=== PATIENT | male | born 1960 | race Hispanic/Latino ===

== ENCOUNTER 2021-07-20 17:31 | Inpatient (IN) | payer OTHER ==
[~2021-07-20] VITALS: Ht 165.1 cm; Wt 50.0 kg
[2021-07-20] MEDS ORDERED: 0.9%NACL 1000ML 1,000 ML IV ONE (19:00)
[2021-07-20] MEDS ORDERED: CEFTRIAXONE 1G VIAL IVP ONE (19:00)
[2021-07-20 19:07] LABS: BASOPHILS % (AUTO) 0.6 % (0.0-5.0); EOSINOPHILS % (AUTO) 2.1 % (0.0-8.0); HEMATOCRIT 33.3 % (42-54); LYMPHOCYTES % (AUTO) 15.1 % (21.0-51.0); MEAN CORPUSCULAR HEMOGLOBIN 31.2 pg (27.0-33.0); MEAN CORPUSCULAR HGB CONC 34.2 g/dL (32.0-36.0); MEAN CORPUSCULAR VOLUME 91.2 fL (79-99); MONOCYTES % (AUTO) 9.1 % (3.0-13.0); NEUTROPHILS % (AUTO) 72.3 % (40.0-77.0); PLATELET COUNT (AUTO) 393 K/uL (130-400); RED BLOOD CELL COUNT(AUTO) 3.65 MIL/uL (4.50-6.20); RED CELL DISTRIBUTION WIDTH 11.7 % (11.0-15.5)
[2021-07-20 19:12] LABS: APPEARANCE,URINE Turbid (CLEAR); BILIRUBIN,URINE Negative (NEGATIVE); COLOR,URINE Yellow (YELLOW); GLUCOSE, URINE (UA) Negative (NEGATIVE); KETONES,URINE Negative (NEGATIVE); LEUKOCYTE ESTERASE ,URINE Large (NEGATIVE); NITRATE,URINE Negative (NEGATIVE); OCCULT BLOOD,URINE Moderate (NEGATIVE); PROTEIN,URINE POS 2+ mg/dL (NEGATIVE); UROBILINOGEN,URINE 0.2 mg/dL (0.2-1.0)
[2021-07-20 19:24] LABS: WBC,URINE 51-100 /HPF (0-1)
[2021-07-20 19:25] LABS: BACTERIA,URINE Moderate /HPF (None Seen); MUCUS,URINE Few LPF (None Seen); SQUAMOUS EPITHELIAL CELL,UR 0-2 /HPF (0-2)
[2021-07-20 19:27] LABS: ALBUMIN 2.7 g/dL (3.5-5.0); BILIRUBIN,TOTAL 0.6 mg/dL (0.2-1.0); CREATININE 5.4 mg/dL (0.5-1.5); POTASSIUM 4.8 mmol/L (3.5-5.1); TOTAL PROTEIN, SERUM 9.2 g/dL (6.0-8.3)
[2021-07-20 19:42] LABS: CRP QUANTITATIVE 212.8 mg/L (0.00-9.0)
[2021-07-20] MEDS ORDERED: ACETAMINOPHEN 325 MG TAB PO PRN (21:00)
[2021-07-20] MEDS ORDERED: LACTATED RINGERS 1000ML 1,845 ML IV ONE (21:00)
[2021-07-20] MEDS: LACTATED RINGERS 1000ML 1,000 ML IV SCH (22:05)
[2021-07-20] MEDS: CEFTRIAXONE 1G VIAL IV SCH (22:05)
[2021-07-20] MEDS: HEPARIN 5,000 UNIT VIAL SQ SCH (22:05)
[2021-07-20] MEDS ORDERED: DIPHENOXYLATE HCL/ATROPINE 2.5/0.025 MG TAB PO PRN (22:30)
[2021-07-20 22:52] LABS: ABG OXYGEN SATURATION 27.2 % (95.0-99.0); BASE EXCESS,VENOUS BLOOD GAS -7.7 (-2.0-3.0); HCO3,VENOUS BLOOD GAS 19.4 (21.0-28.0); PCO2,VENOUS BLOOD GAS 45 (35-48); PH,VENOUS BLOOD GAS 7.249 (7.350-7.450)
[2021-07-21] VITALS (21 sets, daily range): BP systolic 85–157; BP diastolic 43–84
[2021-07-21 06:36] LABS: BASOPHILS % (AUTO) 0.4 % (0.0-5.0); EOSINOPHILS % (AUTO) 0.9 % (0.0-8.0); HEMATOCRIT 34.6 % (42-54); LYMPHOCYTES % (AUTO) 14.2 % (21.0-51.0); MEAN CORPUSCULAR HEMOGLOBIN 30.6 pg (27.0-33.0); MEAN CORPUSCULAR HGB CONC 33.2 g/dL (32.0-36.0); MONOCYTES % (AUTO) 7.1 % (3.0-13.0); NEUTROPHILS % (AUTO) 77.1 % (40.0-77.0); PLATELET COUNT (AUTO) 415 K/uL (130-400); RED BLOOD CELL COUNT(AUTO) 3.76 MIL/uL (4.50-6.20); RED CELL DISTRIBUTION WIDTH 11.9 % (11.0-15.5); WHITE BLOOD COUNT (AUTO) 10.1 K/uL (4.8-10.8)
[2021-07-21 06:52] LABS: CREATININE 5.3 mg/dL (0.5-1.5); MAGNESIUM 2.4 mg/dL (1.80-2.40); PHOSPHORUS 5.6 mg/dL (2.5-4.9); POTASSIUM 4.9 mmol/L (3.5-5.1)
[2021-07-21] MEDS: LACTATED RINGERS 1000ML 1,000 ML IV SCH (08:21)
[2021-07-21] MEDS: TAMSULOSIN HCL 0.4 MG CAP.ER.24H PO SCH (08:22)
[2021-07-21] MEDS: FAMOTIDINE 20MG TAB PO SCH (08:22)
[2021-07-21] MEDS: HEPARIN 5,000 UNIT VIAL SQ SCH (08:22)
[2021-07-21] MEDS: METOCLOPRAMIDE 10 MG/2 ML VIAL IVP SCH (14:20)
[2021-07-21] MEDS ORDERED: FENTANYL CITRATE PF 50 MCG/1 ML 2ML VIAL ONE (18:28)
[2021-07-21] MEDS ORDERED: LIDOCAINE HCL MPF 1% 5ML VIAL ONE (18:28)
[2021-07-21] MEDS ORDERED: PROPOFOL 10 MG/ML 20ML VIAL IV ONE (18:28)
[2021-07-21] MEDS ORDERED: SUCCINYLCHOLINE 200MG/10ML SYR ONE (18:28)
[2021-07-21] MEDS ORDERED: MIDAZOLAM HCL 1 MG/ML 2ML VIAL ONE (18:28)
[2021-07-22] VITALS: BP 131/75
[2021-07-22] MEDS: CEFTRIAXONE 1G VIAL IV SCH ×2 (00:04→20:33)
[2021-07-22] MEDS: HEPARIN 5,000 UNIT VIAL SQ SCH ×4 (00:07→20:34)
[2021-07-22 04:00] VITALS: BP 113/67
[2021-07-22 05:17] LABS: BASOPHILS % (AUTO) 0.3 % (0.0-5.0); LYMPHOCYTES % (AUTO) 2.3 % (21.0-51.0); MEAN CORPUSCULAR HEMOGLOBIN 30.5 pg (27.0-33.0); MEAN CORPUSCULAR HGB CONC 33.6 g/dL (32.0-36.0); MEAN CORPUSCULAR VOLUME 90.7 fL (79-99); MONOCYTES % (AUTO) 3.8 % (3.0-13.0); NEUTROPHILS % (AUTO) 92.8 % (40.0-77.0); PLATELET COUNT (AUTO) 390 K/uL (130-400); RED BLOOD CELL COUNT(AUTO) 3.64 MIL/uL (4.50-6.20); WHITE BLOOD COUNT (AUTO) 15.4 K/uL (4.8-10.8)
[2021-07-22 05:31] LABS: CREATININE 4.4 mg/dL (0.5-1.5); PHOSPHORUS 5.4 mg/dL (2.5-4.9)
[2021-07-22 06:05] LABS: BAND NEUTROPHILS % (MANUAL) 13 % (0-2); LYMPHOCYTES % (MANUAL) 1 % (22-44); MAN.DIFF COMMENT-IMPRESSION MANUAL DIFFERENTIAL; MONOCYTES % (MANUAL) 1 % (2-9); PLATELET MORPHOLOGY COMMENT ADEQUATE; SEGMENTED NEUTROPHILS % 85 % (40-70)
[2021-07-22 07:30] VITALS: BP 121/69
[2021-07-22] MEDS: LACTATED RINGERS 1000ML 1,000 ML IV SCH ×4 (09:11→17:25)
[2021-07-22] MEDS: FAMOTIDINE 20MG TAB PO SCH (09:12)
[2021-07-22] MEDS: TAMSULOSIN HCL 0.4 MG CAP.ER.24H PO SCH (09:12)
[2021-07-22 11:00] VITALS: BP 105/66
[2021-07-22] MEDS: METOCLOPRAMIDE 10 MG/2 ML VIAL IVP SCH (14:20)
[2021-07-22 19:50] VITALS: BP 111/62
[2021-07-22 23:29] VITALS: BP 99/59
[2021-07-23] MEDS: LACTATED RINGERS 1000ML 1,000 ML IV SCH ×2 (03:10→18:49)
[2021-07-23 03:40] VITALS: BP 105/59
[2021-07-23 08:00] VITALS: BP 134/66
[2021-07-23] MEDS: FAMOTIDINE 20MG TAB PO SCH (11:02)
[2021-07-23] MEDS: TAMSULOSIN HCL 0.4 MG CAP.ER.24H PO SCH (11:02)
[2021-07-23] MEDS: HEPARIN 5,000 UNIT VIAL SQ SCH ×2 (11:09→14:49)
[2021-07-23 12:00] VITALS: BP 112/65
[2021-07-23] MEDS: METOCLOPRAMIDE 10 MG/2 ML VIAL IVP SCH (14:00)
[2021-07-23 16:00] VITALS: BP 120/70
[2021-07-23] MEDS ORDERED: TAMS-1 PO (16:58)
[2021-07-23 17:05] LABS: HEMATOCRIT 31.3 % (42-54); MEAN CORPUSCULAR HEMOGLOBIN 30.7 pg (27.0-33.0); MEAN CORPUSCULAR HGB CONC 32.6 g/dL (32.0-36.0); MEAN CORPUSCULAR VOLUME 94.3 fL (79-99); RED BLOOD CELL COUNT(AUTO) 3.32 MIL/uL (4.50-6.20); RED CELL DISTRIBUTION WIDTH 12.4 % (11.0-15.5); WHITE BLOOD COUNT (AUTO) 8.1 K/uL (4.8-10.8)
[2021-07-23 17:16] LABS: POTASSIUM 3.9 mmol/L (3.5-5.1)
[2021-07-23 20:07] VITALS: BP 130/71
[2021-07-23] MEDS: CEFTRIAXONE 1G VIAL IV SCH (20:17)
[2021-07-23 23:33] VITALS: BP 126/72
[2021-07-24 03:51] VITALS: BP 107/61
[2021-07-24] MEDS: LACTATED RINGERS 1000ML 1,000 ML IV SCH ×2 (04:09→16:32)
[2021-07-24 04:52] LABS: HEMATOCRIT 28.8 % (42-54); MEAN CORPUSCULAR HEMOGLOBIN 30.4 pg (27.0-33.0); RED BLOOD CELL COUNT(AUTO) 3.13 MIL/uL (4.50-6.20); RED CELL DISTRIBUTION WIDTH 12.3 % (11.0-15.5); WHITE BLOOD COUNT (AUTO) 11.5 K/uL (4.8-10.8)
[2021-07-24 05:08] LABS: POTASSIUM 4.3 mmol/L (3.5-5.1)
[2021-07-24 08:00] VITALS: BP 116/65
[2021-07-24] MEDS: FAMOTIDINE 20MG TAB PO SCH (08:41)
[2021-07-24] MEDS: TAMSULOSIN HCL 0.4 MG CAP.ER.24H PO SCH (08:41)
[2021-07-24 11:32] VITALS: BP 103/57
[2021-07-24] MEDS: METOCLOPRAMIDE 10 MG/2 ML VIAL IVP SCH (14:00)
[2021-07-24 16:00] VITALS: BP 109/57
[2021-07-24 20:00] VITALS: BP 96/53
[2021-07-24] MEDS: CEFTRIAXONE 1G VIAL IV SCH (22:37)
[2021-07-25] VITALS: BP 99/57
[2021-07-25] MEDS: LACTATED RINGERS 1000ML 1,000 ML IV SCH ×3 (01:00→21:00)
[2021-07-25 03:37] VITALS: BP 106/61
[2021-07-25 06:12] LABS: BASOPHILS % (AUTO) 0.3 % (0.0-5.0); EOSINOPHILS % (AUTO) 3.9 % (0.0-8.0); LYMPHOCYTES % (AUTO) 21.1 % (21.0-51.0); MEAN CORPUSCULAR HEMOGLOBIN 30.2 pg (27.0-33.0); MEAN CORPUSCULAR HGB CONC 32.4 g/dL (32.0-36.0); MEAN CORPUSCULAR VOLUME 93.2 fL (79-99); MONOCYTES % (AUTO) 7.1 % (3.0-13.0); NEUTROPHILS % (AUTO) 66.8 % (40.0-77.0); PLATELET COUNT (AUTO) 291 K/uL (130-400); RED BLOOD CELL COUNT(AUTO) 3.11 MIL/uL (4.50-6.20); RED CELL DISTRIBUTION WIDTH 12.5 % (11.0-15.5); WHITE BLOOD COUNT (AUTO) 7.2 K/uL (4.8-10.8)
[2021-07-25 06:32] LABS: CREATININE 2.5 mg/dL (0.5-1.5)
[2021-07-25 06:35] LABS: % IRON SATURATION 45.4 % (30-44)
[2021-07-25 08:00] VITALS: BP 108/61
[2021-07-25] MEDS: FAMOTIDINE 20MG TAB PO SCH (08:55)
[2021-07-25] MEDS: TAMSULOSIN HCL 0.4 MG CAP.ER.24H PO SCH (08:55)
[2021-07-25 12:00] VITALS: BP 98/56
[2021-07-25] MEDS: METOCLOPRAMIDE 10 MG/2 ML VIAL IVP SCH (13:57)
[2021-07-25 16:00] VITALS: BP 101/61
[2021-07-25 20:00] VITALS: BP 117/65
[2021-07-25] MEDS: CEFTRIAXONE 1G VIAL IV SCH (20:43)
[2021-07-26] VITALS: BP 101/66
[2021-07-26 04:00] VITALS: BP 105/58
[2021-07-26 06:27] LABS: BASOPHILS % (AUTO) 0.4 % (0.0-5.0); HEMATOCRIT 28.4 % (42-54); MEAN CORPUSCULAR HEMOGLOBIN 30.7 pg (27.0-33.0); MEAN CORPUSCULAR HGB CONC 32.7 g/dL (32.0-36.0); MEAN CORPUSCULAR VOLUME 93.7 fL (79-99); NEUTROPHILS % (AUTO) 68.5 % (40.0-77.0); PLATELET COUNT (AUTO) 294 K/uL (130-400); RED BLOOD CELL COUNT(AUTO) 3.03 MIL/uL (4.50-6.20); RED CELL DISTRIBUTION WIDTH 12.4 % (11.0-15.5); WHITE BLOOD COUNT (AUTO) 7.1 K/uL (4.8-10.8)
[2021-07-26 08:57] VITALS: BP 138/59
[2021-07-26] MEDS: FAMOTIDINE 20MG TAB PO SCH (09:43)
[2021-07-26] MEDS: TAMSULOSIN HCL 0.4 MG CAP.ER.24H PO SCH (09:43)
[2021-07-26 13:04] VITALS: BP 109/70
[2021-07-26] MEDS: METOCLOPRAMIDE 10 MG/2 ML VIAL IVP SCH (14:00)
[2021-07-26] MEDS ORDERED: CEFD300C3 PO (16:41)
[2021-07-26 17:09] VITALS: BP 104/61
== END 2021-07-26 20:26 | disposition home or self-care (01) | DRG 690 ==
LOC: EDH 17:31 → EDHIP 20:38 → 4BH 07-21 19:35 → 3CH 07-22 16:52
PROVIDERS: ADMIT Internal Medicine; ATTEND Internal Medicine
PROC: 0T9B80Z Drainage of Bladder with Drainage Device, Via Natural or Artificial Opening Endoscopic (ICD-10-PCS; principal; 2021-07-21 18:32)
DX: N13.6 Pyonephrosis (principal); E87.1 Hypo-osmolality and hyponatremia; E44.0 Moderate protein-calorie malnutrition; Z68.1 Body mass index [BMI] 19.9 or less, adult; N32.89 Other specified disorders of bladder; N17.9 Acute kidney failure, unspecified; N36.5 Urethral false passage; N40.1 Benign prostatic hyperplasia with lower urinary tract symptoms; N32.0 Bladder-neck obstruction; N41.9 Inflammatory disease of prostate, unspecified; I12.9 Hypertensive chronic kidney disease with stage 1 through stage 4 chronic kidney disease, or unspecified chronic kidney disease; Z20.822 Contact with and (suspected) exposure to COVID-19; E87.8 Other disorders of electrolyte and fluid balance, not elsewhere classified; R33.8 Other retention of urine; K59.00 Constipation, unspecified; N18.9 Chronic kidney disease, unspecified; D63.8 Anemia in other chronic diseases classified elsewhere
CPT/HCPCS: 36415; 36600; 71045; 74176; 74430; 80048; 80053; 81001; 82550; 82803; 82948; 83540; 83550; 83605; 83735; 84100; 84134; 84484; 85025; 85027; 86140; 87040; 87077; 87088; 87177; 87186; 87635; 96374; A4354; C1758; G0378; J0330; J0696; J1644; J2250; J2704; J2765; J3010; J3490; J7030; J7120; Q9958

== ENCOUNTER → 2021-08-25 | Outpatient (CLI) | payer OTHER ==
[~2021-08-25] MED LIST: CEFD300C3 PO; TAMS-1 PO
[2021-08-25 09:44] LABS: BASOPHILS % (AUTO) 0.9 % (0.0-5.0); EOSINOPHILS % (AUTO) 4.6 % (0.0-8.0); HEMATOCRIT 36.1 % (42-54); LYMPHOCYTES % (AUTO) 21.5 % (21.0-51.0); MEAN CORPUSCULAR HEMOGLOBIN 31.3 pg (27.0-33.0); MEAN CORPUSCULAR HGB CONC 32.7 g/dL (32.0-36.0); MEAN CORPUSCULAR VOLUME 95.8 fL (79-99); MONOCYTES % (AUTO) 8.1 % (3.0-13.0); NEUTROPHILS % (AUTO) 64.6 % (40.0-77.0); PLATELET COUNT (AUTO) 241 K/uL (130-400); RED BLOOD CELL COUNT(AUTO) 3.77 MIL/uL (4.50-6.20); RED CELL DISTRIBUTION WIDTH 13.3 % (11.0-15.5); WHITE BLOOD COUNT (AUTO) 7.9 K/uL (4.8-10.8)
[2021-08-25 09:59] LABS: CREATININE 1.5 mg/dL (0.5-1.5); POTASSIUM 4.4 mmol/L (3.5-5.1)
== END | disposition home or self-care (01) ==
LOC: LAB 09:24
PROVIDERS: ATTEND Urology
DX: N13.39 Other hydronephrosis (principal)
CPT/HCPCS: 36415; 80048; 85025